=== PATIENT | female | born 1960 | race Caucasian/White ===

== ENCOUNTER 2023-10-08 13:59 | Outpatient (CLI) | payer BC | END 2023-10-08 14:00 | disposition home or self-care (01) | LOC: BICMAMMO 13:59 | PROVIDERS: ATTEND Family Medicine | DX: Z12.31 Encounter for screening mammogram for malignant neoplasm of breast (principal) | CPT/HCPCS: 77063; 77067 ==

== ENCOUNTER 2024-04-27 09:57 | Outpatient (CLI) | payer BC | END 2024-04-27 09:58 | disposition home or self-care (01) | LOC: BICULT 09:57 | PROVIDERS: ATTEND Family Medicine | DX: R10.84 Generalized abdominal pain (principal); K76.0 Fatty (change of) liver, not elsewhere classified; R93.422 Abnormal radiologic findings on diagnostic imaging of left kidney | CPT/HCPCS: 76700; 76856 ==